=== PATIENT | female | born 1935 | race Caucasian/White ===

== ENCOUNTER 2016-11-19 19:40 | Emergency (ER) | payer MEDICARE, MEDICAID ==
[~2016-11-19] VITALS: Ht 152.4 cm; Wt 43.5 kg
[~2016-11-19 19:40] MED LIST: ACET325T38 PO; AMIO100T4 PO; AMIO200T PO; APIX5TAB2 PO; ASCO500C14 PO; Amlodipine Besylate PO; BISM262T13 PO; BISM262T16 PO; CALC-140 PO; CALC-80 PO; CALC500T7 PO; CALC625T8 PO; CEFD300C3 PO; CHLO25TA22 PO; CHOL200018 PO; CHOL400T40 PO; CIPR250T3 PO; CORICIDIN PO; CYAN100053 IM; CYCL25CA7 PO; CYCLOSPORINE PO; D ME PO; DCS100C PO; DOCU-143 PO; DULO30CA3 PO; FAMO1TAB3 PO; FLUC100T PO; GUAI10SY4 PO; GUAI1CAP51 PO; GUAI5SYR PO; HYDR-3004 PO; ISOS30TA3 PO; Isosorbide Mononitrate PO; LEVO75TA57 PO; LIDO76.5 TP; LISI40TA PO; LVT.025T PO; MAGN-47 PO; MAGN400O7 PO; MAGN400T26 PO; METO-333 PO; MOUTH WASH MM; MULT-974 PO; NFCHLORT25 PO; OLME20TA5 PO; OMEP-10 PO; POTA-51 PO; POTA10CA43 PO; PRD20T PO; PRED5TAB PO; ROPI0.5T2 PO; ROPI1TAB2 PO; Rivaroxaban PO; SIMV10TA3 PO; TRAM-21 PO; TRAM-42 PO; TROL177. TP
--- OUTSIDE RECORDS SUMMARY | 2016-11-19 19:45 | XMS REPORT | Continuity of Care Document ---
Author Author [facility] Organization [facility] Address Unknown Phone Unavailable Care Team Providers Care Sas Administrator Name Role Phone Soledad Lilly PCP [phone] Source Comments Some departments are not documenting in the electronic medical record. If you do not see the information that you expected, contact Release of Information in the Health Information Management department at [phone] for further assistance in locating additional records.[facility] Active Allergies and Adverse Reactions Allergen Noted Date Severity Reactions Comments Adhesive Tape (Rosins) 12/12/2015 Medium RASH Amoxil 12/12/2015 Medium RASH Bactrim 12/12/2015 Medium RASH Macrodantin 12/12/2015 Medium RASH Norvasc 12/12/2015 Medium RASH Silicone 12/12/2015 Medium RASH Current Medications Prescription Sig. Disp. Refills Start End Date Status Date isosorbide mononitrate SR Take 30 mg by mouth every Active (IMDUR) 30 mg tablet morning. amLODIPine (NORVASC) 10 Take 10 mg by mouth Active mg tablet daily. chlorthalidone (HYGROTON) Take 25 mg by mouth Active 25 mg tablet daily. potassium chloride(+) Take 10 mEq by mouth Active (MICRO-K) 10 mEq capsule daily. rOPINIRole (REQUIP) 0.5 Take 0.5 mg by mouth Active mg tablet three times daily. CALCIUM CARBONATE/VITAMIN Take 600 mg by mouth Active D3 (CALCIUM + D PO) daily. docusate (COLACE) 100 mg Take 100 mg by mouth Active capsule twice daily. traMADol (ULTRAM) 50 mg Take 50 mg by mouth every Active tablet 6 hours as needed for Pain. MAGNESIUM HYDROXIDE Take by mouth. Active (CHRISTENSEN MILK OF MAGNESIA PO) MAGNESIUM HYDROXIDE (MILK Take 30 mL by mouth as Active OF MAGNESIA PO) Needed. acetaminophen (TYLENOL) Take 325 mg by mouth Active 325 mg tablet every 4 hours as needed for Pain. CALCIUM CARBONATE (TUMS Take by mouth as Needed. Active PO) BISMUTH SUBSALICYLATE Take by mouth as Needed. Active (PEPTO-BISMOL PO) GUAIFENESIN/CODEINE Take 10 mL by mouth as Active PHOSPHATE (ROBITUSSIN A-C Needed. PO) ACETAMINOPHEN/CHLORPHENIR Take by mouth as Needed. Active AMINE (CORICIDIN PO) TROLAMINE SALICYLATE Apply to affected area Active (ASPERCREME TP) as Needed. sucralfate (CARAFATE) 1 Take 1 g by mouth every 6 Active gram tablet hours. PREDNISONE PO Take 20 mg by mouth twice Active daily. NYSTATIN PO Take by mouth. Active triamcinolone Take 5 g by mouth twice 5 g 12 12/12/19 Active acetonide(+) (KENALOG) daily. 16 0.1 % dental paste Active Problems Problem Noted Date Mucositis oral 12/12/2015 Essential hypertension 12/12/2015 Rash 12/12/2015 Social History Tobacco Use Types Packs/Day Years Used Date Never Smoker Alcohol Use Drinks/Week oz/Week Comments No 0 Standard 0.0 drinks or equivalent Last Filed Vital Signs Vital Sign Reading Time Taken Blood Pressure 110/76 12/12/2015 1:18 PM CDT Pulse 93 12/12/2015 1:18 PM CDT Temperature - - Respiratory Rate - - Height 1.524 m (5') 12/12/2015 1:18 PM CDT Weight 43.999 kg (97 lb) 12/12/2015 1:18 PM CDT Body Mass Index 18.94 12/12/2015 1:18 PM CDT Oxygen Saturation - - Plan of Care Health Maintenance Due Date Last Done Comments Physical (Comprehensive) 1940 Exam Pertussis Vaccine 1944 Tetanus Vaccine 1950 Shingles Vaccine 1993 Osteoporosis Screening 1998 Prevnar/Pneumovax (#1) 1998 Influenza Vaccine 05/17/2016 Results from Last 3 Months Not on file
[2016-11-19] MEDS ORDERED: NS IV 1000 ML 1,000 ML ONE (19:49)
[2016-11-19] MEDS ORDERED: NS IV 1000 ML 1,000 ML IV ONE (19:54)
[2016-11-19 20:04] LABS: BASOPHILS % (AUTO) 0 % (0-10); EOSINOPHILS % (AUTO) 0 % (0-10); LYMPHOCYTES # (AUTO) 2.2 X 10^3 (1.0-4.0); LYMPHOCYTES % (AUTO) 20 % (12-44); MEAN CORPUSCULAR HEMOGLOBIN 30 PG (25-34); MEAN CORPUSCULAR HGB CONC 33 G/DL (32-36); MEAN CORPUSCULAR VOLUME 90 FL (80-99); MEAN PLATELET VOLUME 10.9 FL (7.4-10.4); MONOCYTES # (AUTO) 0.9 X 10^3 (0.0-1.0); MONOCYTES % (AUTO) 8 % (0-12); NEUTROPHILS # (AUTO) 7.9 X 10^3 (1.8-7.8); NEUTROPHILS % (AUTO) 71 % (42-75); PLATELET COUNT 197 10^3/uL (130-400); RED BLOOD COUNT 4.56 10^6/uL (4.35-5.85); RED CELL DISTRIBUTION WIDTH 16.1 % (10.0-14.5); WHITE BLOOD COUNT 11.1 10^3/uL (4.3-11.0)
[2016-11-19] MEDS ORDERED: ENOXAPARIN 40 MG/0.4 ML (LOVENOX) SYR SC ONE (20:15)
[2016-11-19] MEDS ORDERED: AMIODARONE IV SOLUTION 200 ML IV SCH (20:15)
[2016-11-19] MEDS ORDERED: DIGOXIN 0.25 MG/ML (LANOXIN) 2 ML AMP IV ONE (20:15)
[2016-11-19] MEDS ORDERED: AMIODARONE FOR BOLUS 150 MG in D5W 100 ML IVPB 100 ML IV ONE (20:15)
[2016-11-19] MEDS ORDERED: DOPamine DRIP 250 ML IV SCH (20:15)
[2016-11-19] MEDS ORDERED: ENOXAPARIN 60 MG/0.6 ML (LOVENOX) SYR SC ONE (20:15)
[2016-11-19 20:17] LABS: INR 1.2 (0.8-1.4)
[2016-11-19] MEDS ORDERED: DOPamine DRIP 250 ML IV ONE (20:19)
[2016-11-19] MEDS ORDERED: PANTOPRAZOLE 40 MG/10 ML (PROTONIX) VIAL ONE (20:24)
[2016-11-19] MEDS ORDERED: PANTOPRAZOLE 40 MG/10 ML (PROTONIX) VIAL IV ONE (20:30)
--- NOTE | 2016-11-19 20:50 | Diagnostic Imaging Report ---
EXAM: CHEST 1 VIEW, AP/PA ONLY INDICATION: Low blood pressure. Shortness of air. COMPARISON: Chest radiograph 07/25/2016. FINDINGS: Examination mildly limited by rotation and shallow inspiration which accentuates the cardiomegaly and pulmonary vascularity. Atelectasis or infiltrate in the left lung base is new since the prior exam. Large esophageal hiatal hernia. No new focal pulmonary opacity, pleural effusion or pneumothorax. Calcified aorta. Demineralization. Degenerative changes in both shoulders and spine. IMPRESSION: 1. Shallow inspiration accentuates the cardiomegaly and central pulmonary vascularity. 2. New atelectasis and/or infiltrate in the left lung base. Dictated by: Dictated on workstation # [id number]
[2016-11-19] MEDS ORDERED: ASPIRIN 325 MG (5 GR) TABLET ONE (20:53)
[2016-11-19] MEDS ORDERED: meTOprolol 5 MG/5 ML (LOPRESSOR) VIAL ONE (20:53)
[2016-11-19] MEDS ORDERED: meTOproloL SUCCINATE 50 MG (TOPROL XL) TAB PO ONE (20:53)
[2016-11-19] MEDS ORDERED: FUROSEMIDE 40 MG/4 ML INJ (LASIX) ONE (20:54)
--- NOTE | 2016-11-19 20:55 | ED Cardiac General ---
History of Present Illness General Chief Complaint: Chest Pain Stated Complaint: AFIB W/ RVR Nursing Triage Note: PT BROUGHT IN PER EMS, REPORT SOA, CHEST DISCOMFORT FROM [facility]. PT ALERT AND ORIENTED. PT C/O LEFT ARM TENDERNESS AND SOA. HR FOUND TO BE 160S. Source: family (DAUGHTER), EMS, [facility] records, old records (ALL PMH IS FROM OLD RECORDS AND [facility] PAPERS) Exam Limitations: other (PT UNABLE TO GIVE ANY RELEVANT INFORMATION AT THIS TIME) History of Present Illness Time seen by provider: 19:40 Initial Comments PT ARRIVES VIA EMS FROM [facility] EMS REPORT THAT THEY WERE CALLED FOR PT HAVING CHEST PAIN PT WAS FOUND TO BE IN A FIB WITH RVR AND RATE IN 170'S WITH BP 97/55 O2 SATS NOT OBTAINED--PT ON 15L/NRB ON ARRIVAL PT IS UNABLE TO STATE IF SHE IS HAVING CHEST PAIN OR SHORTNESS OF BREATH--PT STATES "I DON'T KNOW" TO ALL QUESTIONS--PT IS MOANING AND SOMEWHAT INCOHERENT ON ARRIVAL, AND UNABLE TO ANSWER ANY QUESTIONS. IS UNKNOWN HOW LONG THE PT HAS BEEN IN THIS CONDITION--NO REPORT FROM [facility] PCP: DR. ARTHUR Allergies and Home Medications Allergies Coded Allergies: acetaminophen (Verified Allergy, Mild, 02/06/16) adhesive (Verified Allergy, Mild, 02/06/16) amlodipine (Verified Allergy, Mild, 02/06/16) amoxicillin (Verified Allergy, Mild, 02/06/16) nitrofurantoin (Unverified Allergy, Mild, 12/30/14) propoxyphene (Unverified Allergy, Mild, 12/30/14) silicone (Unverified Allergy, Mild, 12/30/14) sulfamethoxazole (Unverified Allergy, Mild, 12/30/14) trimethoprim (Unverified Allergy, Mild, 12/30/14) Home Medications 5 ML MM QID (Reported) RINSE AND SPIT 1:1:1 DECADRON;LIDOCAINE;NYSTATIN Bismuth Subsalicylate 262 Mg Tab.chew 262 MG PO PRN PRN PRN STOMACH UPSET ( Reported) Calcium Carbonate 200 Mg Tab.chew 1-2 TAB.CHEW PO QID PRN PRN INDIGESTION ( Reported) Calcium Carbonate/Vitamin D3 1 Each Tablet 1 TAB PO BID (Reported) Cefdinir 300 Mg Capsule 300 MG PO BID (Reported) 7 DAY THERAPY START DATE 02-04-16 Chlorthalidone 25 Mg Tablet 25 MG PO DAILY (Reported) Ciprofloxacin HCl 250 Mg Tablet #20 250 MG PO BID WITH MEALS Prescribed by: MARYELLEN ALFORD on 08/04/16 1601 Cyclosporine 25 Mg Capsule 25 MG PO DAILY (Reported) Docusate Sodium 100 Mg Cap 100 MG PO BID PRN PRN CONSTIPATION (Reported) Guaifenesin/Dextromethorphan 5 Ml Syrup 10 ML PO Q4H PRN PRN COUGH (Reported) Guaifenesin/Dextromethorphan 1 Each Capsule 1 CAP PO UD PRN PRN COLD (Reported) Isosorbide Mononitrate 30 Mg Tab.er.24h 30 MG PO DAILY (Reported) Lidocaine HCl 76.5 Gm Cream..g. TP QID PRN PRN MUSCLE PAIN (Reported) Magnesium Hydroxide Unknown Strength Oral.susp 30 ML PO DAILY PRN PRN CONSTIPATION (Reported) Metoprolol Tartrate 25 Mg Tablet 25 MG PO DAILY (Reported) Multivitamin 1 Each Tablet 1 TAB PO DAILY (Reported) Prednisone 5 Mg Tablet 15 MG PO DAILY (Reported) TAKES 3 (5MG) TABLETS Ropinirole HCl 0.5 Mg Tablet 1.5 MG PO HS (Reported) TAKES 3 (0.5MG) TABLETS Ropinirole HCl 0.5 Mg Tablet 0.5 MG PO DAILY PRN PRN RESTLESSNESS (Reported) Tramadol HCl 50 Mg Tablet 100 MG PO TID PRN PRN PAIN (Reported) Review of Systems Constitutional: see HPI other (PT UNABLE TO ANSWER ANY QUESTIONS AT THIS TIME) Past Jlwzddg-Vtjieq-Tewtun Hx Patient Social History Alcohol Use: Denies Use Recreational Drug Use: No Smoking Status: Never a Smoker 2nd Hand Smoke Exposure: No Recent Foreign Travel: No Contact w/Someone Who Travel: No Recent Infectious Disease Expo: No Recent Hopitalizations: No Immunizations Up To Date Date of Pneumonia Vaccine: January 23, 2016 Date of Influenza Vaccine: May 17, 2016 Seasonal Allergies Seasonal Allergies: No Surgeries HX Surgeries: Yes (BILAT TOTAL HIPS, BLADDER TIE UP) Surgeries: Bladder Surgery, Gallbladder, Hysterectomy, Joint Replacement, Orthopedic Respiratory Hx Respiratory Disorders: No Cardiovascular Hx Cardiac Disorders: Yes (HX OF AFIB ) Cardiac Disorders: Angina, Atrial Fibrillation, High Cholesterol, Hypertension , Irregular Heartbeat Neurological Hx Neurological Disorders: Yes Neurological Disorders: TIA Reproductive System : No Hx Reproductive Disorders: No Sexually Transmitted Disease: No HIV/AIDS: 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 Genitourinary Hx Genitourinary Disorders: Yes (UTI) Genitourinary Disorders: UTI-Chronic Gastrointestinal Hx Gastrointestinal Disorders: Yes (WEIGHT LOSS) Gastrointestinal Disorders: Abdominal Hernia, Gastroesophageal Reflux, Chronic Constipation Musculoskeletal Hx Musculoskeletal Disorders: Yes (restless leg syndrome) Musculoskeletal Disorders: Degenerate Disk Disease, Back Injury, Fractures Endocrine Hx Endocrine Disorders: Yes Endocrine Disorders: Hypothyroidsim HEENT HX ENT Disorders: No Cancer Hx Cancer: No Psychosocial Hx Psychiatric Problems: No Integumentary HX Skin/Integumentary Disorder: No Blood Transfusions Hx Blood Disorders: Yes (anemia; "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 PT DYSPNEIC. ) HEENT: Other (EXTENSIVE THRUSH; SIGNIFICANT BILATERAL CONJUNCTIVITIS) Neck: Full Range of MotionNo JVD Respiratory: Accessory Muscle Use Rales (IN BASES) Respiratory Distress ( MILDLY DYSPNEIC) Cardiovascular: No JVD Irregularly Irregular Tachycardia Gastrointestinal: No Pulsatile Mass Non Tender Soft Extremity: Other (1+ EDEMA ON RIGHT, 2+ EDEMA ON LEFT WITH CHRONIC VENOUS STASIS CHANGES TO LEFT LOWER LEG. ) Neurologic/Psychiatric: Alert (AWAKE BUT LETHARGIC) Other (UNABLE TO DETERMINE IF FULLY ORIENTED AT THIS TIME--PT UNABLE TO ANSWER MOST QUESTIONS AND UNABLE TO FOLLOW COMMANDS. SPEECH APPEARS CLEAR. PT APPEARS TO RECOGNIZE DAUGHTER. ) Skin: Normal Color Warm/Dry Progress/Results/Core Measures Results/Orders Lab Results Laboratory Tests Test 11/19/16 19:49 11/19/16 20:54 Range/Units Activated Partial Thromboplast Time 25 24-35 SEC B-Type Natriuretic Peptide 1165.6 H <100.0 PG/ML Basophils # (Auto) 0.0 0.0-0.1 10^3/uL Basophils (%) (Auto) 0 0-10 % Eosinophils # (Auto) 0.0 0.0-0.3 10^3/uL Eosinophils (%) (Auto) 0 0-10 % Hematocrit 41 35-52 % Hemoglobin 13.6 11.5-16.0 G/DL INR Comment 1.2 0.8-1.4 Lymphocytes # (Auto) 2.2 1.0-4.0 X 10^3 Lymphocytes (%) (Auto) 20 12-44 % Mean Corpuscular Hemoglobin 30 25-34 PG Mean Corpuscular Hemoglobin Concent 33 32-36 G/DL Mean Corpuscular Volume 90 80-99 FL Mean Platelet Volume 10.9 H 7.4-10.4 FL Monocytes # (Auto) 0.9 0.0-1.0 X 10^3 Monocytes (%) (Auto) 8 0-12 % Neutrophils # (Auto) 7.9 H 1.8-7.8 X 10^3 Neutrophils (%) (Auto) 71 42-75 % Platelet Count 197 130-400 10^3/uL Prothrombin Time 15.0 H 12.2-14.7 SEC Red Blood Count 4.56 4.35-5.85 10^6/uL Red Cell Distribution Width 16.1 H 10.0-14.5 % White Blood Count 11.1 H 4.3-11.0 10^3/uL Alanine Aminotransferase (ALT/SGPT) 23 0-55 U/L Albumin 2.8 L 3.2-4.5 G/DL Alkaline Phosphatase 84 40-136 U/L Anion Gap 14 5-14 MMOL/L Aspartate Amino Transf (AST/SGOT) 37 H 5-34 U/L BUN/Creatinine Ratio 34 Blood Urea Nitrogen 58 H 7-18 MG/DL Calcium Level 8.1 L 8.5-10.1 MG/DL Carbon Dioxide Level 14 L 21-32 MMOL/L Chloride Level 107 98-107 MMOL/L Creatine Kinase MB 15.9 *H <6.6 NG/ML Creatinine 1.70 H 0.60-1.30 MG/DL Estimat Glomerular Filtration Rate 29 Glucose Level 260 H 70-105 MG/DL Magnesium Level 1.9 1.8-2.4 MG/DL Potassium Level 4.6 3.6-5.0 MMOL/L Sodium Level 135 135-145 MMOL/L TSH Pegram Testing 2.22 0.35-4.94 UIU/ML Total Bilirubin 0.8 0.1-1.0 MG/DL Total Creatine Kinase 86 29-168 U/L Total Protein 6.0 L 6.4-8.2 G/DL Troponin I 18.72 *H <0.30 NG/ML My Orders Orders-BILL VANEGAS DO Ns Iv 1000 Ml (Sodium Chloride 0.9%) (11/19/16 19:49) Ekg Tracing (11/19/16 19:54) O2 (11/19/16 19:54) Monitor-Rhythm Ecg Trace Only (11/19/16 19:54) BNP (11/19/16 19:54) Cbc With Automated Diff (11/19/16 19:54) Comprehensive Metabolic Panel (11/19/16 19:54) Creatine Kinase (11/19/16 19:54) Creatine Kinase Mb (11/19/16 19:54) Magnesium (11/19/16 19:54) Protime With Inr (11/19/16 19:54) Partial Thromboplastin Time (11/19/16 19:54) Thyroid Analyzer (11/19/16 19:54) Troponin I (11/19/16 19:54) Chest 1 View, Ap/Pa Only (11/19/16 19:54) Saline Lock/Iv-Start (11/19/16 19:54) Ns Iv 1000 Ml (Sodium Chloride 0.9%) (11/19/16 19:54) Dopamine Drip (Dopamine Drip) (11/19/16 20:15) Digoxin Injection (Lanoxin Injection) (11/19/16 20:15) Amiodarone For Bolus (Cordarone Bolus) (11/19/16 20:15) Amiodarone Iv Solution (Nexterone Iv Adelia (11/19/16 20:15) Enoxaparin Injection (Lovenox Injection) (11/19/16 20:15) Enoxaparin Injection (Lovenox Injection) (11/19/16 20:15) Dopamine Drip (Dopamine Drip) (11/19/16 20:19) Pantoprazole Injection (Protonix Injecti (11/19/16 20:24) Catheter(Urinary) Insert & Ass 03,15 (11/19/16 20:16) Pantoprazole Injection (Protonix Injecti (11/19/16 20:30) Medications Given in ED Current Medications Medications Dose Ordered Sig/Alex Route Start Time Stop Time Status Last Admin Dose Admin Amiodarone HCl/ Dextrose 103 ml @ 618 mls/hr ONCE ONCE IV 11/19/16 20:15 11/19/16 20:24 DC 11/19/16 20:18 618 MLS/HR Digoxin 0.25 mg 0.25 mg ONCE ONCE IV 11/19/16 20:15 11/19/16 20:16 DC 11/19/16 20:25 0.25 MG Enoxaparin Sodium 40 mg ONCE ONCE SC 11/19/16 20:15 11/19/16 20:16 DC 11/19/16 20:36 40 MG Pantoprazole 40 mg ONCE ONCE IV 11/19/16 20:30 11/19/16 20:31 DC 11/19/16 20:35 40 MG Sodium Chloride 1,000 ml @ 0 mls/hr Q0M ONCE IV 11/19/16 19:54 11/19/16 19:56 DC 11/19/16 20:18 0 MLS/HR Vital Signs/I&O Vital Sign - Last 12Hours 11/19/16 11/19/16 11/19/16 11/19/16 19:45 20:05 20:32 20:36 Temp 96.1 96.1 96.1 Pulse 160 160 B/P 73/57 73/57 Pulse Ox 3 97 97 O2 Delivery Nasal Cannula Nasal Cannula Nasal Cannula O2 Flow Rate 2 3 3.00 11/19/16 20:37 Temp 96.1 Pulse 160 B/P 73/57 Pulse Ox 97 O2 Delivery Nasal Cannula O2 Flow Rate 3.00 Blood Pressure Mean: 62 ECG Initial ECG Impression Time: 19:51 Initial ECG Rate: 163 Initial ECG Rhythm: A Fib/Flutter (WITH RVR) Initial ECG Impression: Acute KS (STEMI--ELEVATION IN ANTERIOR LEADS. ) Initial ECG Comparisson: Changed (FROM ) EKG : EKG Time: 20:23 Rate: 121 Rhythm: A Fib/Flutter (WITH RVR AND ANTERIOR STEMI) Comment EKG # 3 @ 2041--RATE 107-- ATRIAL FIB, RVR, ANTERIOR STEMI EKG #4 @ 2057--RATE 85--ATRIAL FIB/FLUTTER, ANTERIOR/LATERAL STEMI Diagnostic Imaging Comments CXR--SHALLOW INSPIRATION, CARDIOMEGALY, CENTRAL VENOUS VASCULARITY, LLL INFILTRATE/ATELECTASIS--PER RADIOLOGIST REPORT @ 2114 Reviewed: Reviewed by Me Critical Care Note Critical Care Start Time: 19:40 Stop Time: 20:58 Total Time (minutes) 1 HOUR Date of : Nov 19, 2016 Time of : 20:58 Departure Communication Progress Notes 1949--PAGING DR. RODRIGUEZ 1950--DAUGHTER STATES THAT PT IS TO BE DNR/DNI--NO FORMAL PAPERWORK HOWEVER. SHE IS CALLING HER BROTHER--HE WILL BE HERE SHORTLY. THEY HAVE BOTH DISCUSSED THIS AND BOTH AGREE ON DNR/DNI STATUS 1954--SPOKE WITH DR. ARTHUR--AGREES THAT PT SHOULD BE DNR/DNI AND POSSIBLY EVEN COMFORT CARE. SHE DOES NOT FEEL PT WOULD SURVIVE A CARDIAC CATH. ACCEPTS PT FOR ADMIT. 1958--PAGING DR. RODRIGUEZ 1999--SPOKE WITH DR. RODRIGUEZ. ORDERS NOTED FOR AMIODARONE 150 MG BOLUS AND DRIP PER PROTOCOL, DIGOXIN 0.25 MG IV X 1 DOSE, LOVENOX WEIGHT BASED DOSE Q 12 HOURS , ASPIRIN AND PLAVIX WHEN FULLY ALERT, AND CARDIZEM DRIP AT 5 MG/HOUR IF SYSTOLIC BP > 80. NO BETA BLOCKERS DUE TO HYPOTENSION. HE WILL CALL BACK TO CHECK ON PT 2034--DR. RODRIGUEZ HERE TO SEE PT AND TALKING WITH FAMILY. ALL AGREE THAT PT SHOULD BE DNR/DNI, AND NO CARDIAC CATH. 2049--PT NOW WITH AGONAL BREATHING--DR. RODRIGUEZ IN ROOM 2054--PT NOW IN [place]--DR. RODRIGUEZ IN ROOM 2057--PT PRONOUNCED BY DR. RODRIGUEZ 2104--SPOKE WITH DR. ARTHUR AND INFORMED HER OF PT'S . Impression Impression: Primary Impression: STEMI (ST elevation myocardial infarction) Additional Impressions: Atrial fibrillation with RVR Cardiogenic shock Disposition: 20 Condition: Departure-Patient Inst. Referrals: RADHA ARTHUR MD (PCP) Primary Care Physician BILL VANEGAS DO Nov 19, 2016 20:55
[2016-11-19 20:58] VITALS: BP 0/0
[2016-11-19] MEDS ORDERED: CLOPIDOGREL 300 MG (PLAVIX) TABLET PO ONE (21:00)
--- NOTE | 2016-11-19 21:14 | Consultation-Cardiology ---
HPI-Cardiology Cardiology Consultation: Date of Consultation 11/19/16 Date of Admission Attending Physician Admitting Physician Mely Lilly MD Consulting Physician MAC RODRIGUEZ MD, FACP, FACC, [facility] [place], CCDS Physician requesting consult: Dr Lopez, Dr Lilly HPI: Chief Complaint: Chest discomfort 81 yo woman, resident of a local [facility], sent to ER for eval of chest discomfort and found to have recent/acute ant-lat STEMI. Intermittently confused and not able to provide a meaningful history. Daughter and son by her bedside. Daughter reports that Ms Cotton has been ill for several weeks. This has consisted of gen malaise and some shortness of breath. Chest discomfort today was new. She did not report palp, but was found to be in a fib with RVR at presentation. She did not describe syncope. She has a h/o mild chronic bilat leg swelling Review of Systems-Cardiology Review of Systems Constitutional: other (Due to pt's confused status, a reliable review of systems could not be obtained. Whatever ROS could be obtained is described above under HPI) LNU-Mgxjdi-Gtorte Hx Patient Social History Alcohol Use: Denies Use Recreational Drug Use: No Smoking Status: Never a Smoker 2nd Hand Smoke Exposure: No Recent Foreign Travel: No Recent Infectious Disease Expo: No Hospitalization with Isolation: Denies Immunizations Up To Date Date of Pneumonia Vaccine: January 23, 2016 Date of Influenza Vaccine: May 17, 2016 Past Medical History PMH As described under Assessment. Family Medical History Family History: Alzheimer's disease 19 FATHER Congenital disease G8 BROTHER (pacemaker) FH: cancer 19 FATHER G8 BROTHER (leukemia, prostate ca) G8 SISTER Hypertension 19 FATHER Allergies and Home Medications Allergies Coded Allergies: acetaminophen (Verified Allergy, Mild, 02/06/16) adhesive (Verified Allergy, Mild, 02/06/16) amlodipine (Verified Allergy, Mild, 02/06/16) amoxicillin (Verified Allergy, Mild, 02/06/16) nitrofurantoin (Unverified Allergy, Mild, 12/30/14) propoxyphene (Unverified Allergy, Mild, 12/30/14) silicone (Unverified Allergy, Mild, 12/30/14) sulfamethoxazole (Unverified Allergy, Mild, 12/30/14) trimethoprim (Unverified Allergy, Mild, 4/16/15) Home Medications 5 ML MM QID (Reported) RINSE AND SPIT 1:1:1 DECADRON;LIDOCAINE;NYSTATIN Bismuth Subsalicylate 262 Mg Tab.chew 262 MG PO PRN PRN PRN STOMACH UPSET ( Reported) Calcium Carbonate 200 Mg Tab.chew 1-2 TAB.CHEW PO QID PRN PRN INDIGESTION ( Reported) Calcium Carbonate/Vitamin D3 1 Each Tablet 1 TAB PO BID (Reported) Cefdinir 300 Mg Capsule 300 MG PO BID (Reported) 7 DAY THERAPY START DATE 02-04-16 Chlorthalidone 25 Mg Tablet 25 MG PO DAILY (Reported) Ciprofloxacin HCl 250 Mg Tablet #20 250 MG PO BID WITH MEALS Prescribed by: MARYELLEN ALFORD on 08/04/16 1601 Cyclosporine 25 Mg Capsule 25 MG PO DAILY (Reported) Docusate Sodium 100 Mg Cap 100 MG PO BID PRN PRN CONSTIPATION (Reported) Guaifenesin/Dextromethorphan 5 Ml Syrup 10 ML PO Q4H PRN PRN COUGH (Reported) Guaifenesin/Dextromethorphan 1 Each Capsule 1 CAP PO UD PRN PRN COLD (Reported) Isosorbide Mononitrate 30 Mg Tab.er.24h 30 MG PO DAILY (Reported) Lidocaine HCl 76.5 Gm Cream..g. TP QID PRN PRN MUSCLE PAIN (Reported) Magnesium Hydroxide Unknown Strength Oral.susp 30 ML PO DAILY PRN PRN CONSTIPATION (Reported) Metoprolol Tartrate 25 Mg Tablet 25 MG PO DAILY (Reported) Multivitamin 1 Each Tablet 1 TAB PO DAILY (Reported) Prednisone 5 Mg Tablet 15 MG PO DAILY (Reported) TAKES 3 (5MG) TABLETS Ropinirole HCl 0.5 Mg Tablet 1.5 MG PO HS (Reported) TAKES 3 (0.5MG) TABLETS Ropinirole HCl 0.5 Mg Tablet 0.5 MG PO DAILY PRN PRN RESTLESSNESS (Reported) Tramadol HCl 50 Mg Tablet 100 MG PO TID PRN PRN PAIN (Reported) Physical Exam-Cardiology Physical Exam Vital Signs/I&O Vital Sign - Last 12Hours 11/19/16 11/19/16 11/19/16 11/19/16 19:45 20:05 20:32 20:36 Temp 96.1 96.1 96.1 Pulse 160 160 B/P 73/57 73/57 Pulse Ox 3 97 97 O2 Delivery Nasal Cannula Nasal Cannula Nasal Cannula O2 Flow Rate 2 3 3.00 11/19/16 20:37 Temp 96.1 Pulse 160 B/P 73/57 Pulse Ox 97 O2 Delivery Nasal Cannula O2 Flow Rate 3.00 Capillary Refill : Less Than 3 Seconds Constitutional: other (cachectic appearing; cofused) HEENT: other (mucoid discharge in the eyes holding eyelids shut; pupils round and reactive) Neck: carotid pulses are 2 + bilaterally Respiratory: other (Diminished air entry at the bases and coarse and fine basal crackles) Cardiovascular: irregularly irregular S1 and S2 systolic murmur (soft CAMI at card base) Gastrointestinal: No tender, No guarding, No rebound, audible bowel sounds Extremities: swelling (1-2+ bilat leg edema)No clubbing, No cyanosis Neurologic/Psychiatric: other (confused; 4/5 power in all limbs) Skin: No rash on exposed areas, No ulcerations on exposed areas Data Review Labs Laboratory Tests 11/19/16 19:49: Activated Partial Thromboplast Time 25, B-Type Natriuretic Peptide 1165.6H, Basophils # (Auto) 0.0, Basophils (%) (Auto) 0, Eosinophils # (Auto) 0.0, Eosinophils (%) (Auto) 0, Hematocrit 41, Hemoglobin 13.6, INR Comment 1.2, Lymphocytes # (Auto) 2.2, Lymphocytes (%) (Auto) 20, Mean Corpuscular Hemoglobin 30, Mean Corpuscular Hemoglobin Concent 33, Mean Corpuscular Volume 90, Mean Platelet Volume 10.9H, Monocytes # (Auto) 0.9, Monocytes (%) (Auto) 8, Neutrophils # (Auto) 7.9H, Neutrophils (%) (Auto) 71, Platelet Count 197, Prothrombin Time 15.0H, Red Blood Count 4.56, Red Cell Distribution Width 16.1H , White Blood Count 11.1H 11/19/16 20:54: Laboratory Tests 11/19/16 19:49 A/P-Cardiology Assessment/Admission Diagnosis * Ac anterolateral STEMI with cardiogenic shock * A fib with RVR * DNR/DNI status * Cachexia * Chronic history of immobility Discussion and Recomendations * The patient, due to confusion, was unable to make any decisions * Dr Lilly, her pcp, had recommended against card cath, given chronic illness , immobility and frail status (leading to markedly increased risk for card cath and interventions) * I also had a detailed discussion with her son and her daughter and explained the treatment option and pros and cons.They also chose conservative therapy only ADDENDUM She was treated with amiodarone for vent rate control. This did improve the heart rate considerably although she remained in a fib Subcutaneous enoxaparin was given She was unable to take oral meds at the time of presentation Beta-blockers could not be given due to low bp iv fluids were given due to low bp iv dopamine was used due to low bp Elec cardioversion was considered but the bp and heart rate improved and cardioversion was not carried out After bp improved, we were getting ready to give aspirin, clopidogrel, and beta- colten, but the patient suddenly took a turn for the worse and Resuscitation was not carried out due to DNR/DNI status which I reconfirmed with her family when the patient suddenly took a turn for the worse MAC RODRIGUEZ MD FACP [facility] Nov 19, 2016 21:14
[2016-11-19 21:18] LABS: ALBUMIN 2.8 G/DL (3.2-4.5); BILIRUBIN,TOTAL 0.8 MG/DL (0.1-1.0); CALCIUM 8.1 MG/DL (8.5-10.1); CREATININE SERUM 1.7 MG/DL (0.60-1.30); MAGNESIUM 1.9 MG/DL (1.8-2.4); POTASSIUM 4.6 MMOL/L (3.6-5.0)
[2016-11-19 21:40] LABS: TROPONIN I 18.72 NG/ML (<0.30)
== END 2016-11-19 20:58 | disposition expired ==
LOC: EDUNIT# 19:41 → ER 19:42 → UNDOADMIN 21:00 → UNDODISIN 21:00 → ICU 21:00
DX: I21.09 ST elevation (STEMI) myocardial infarction involving other coronary artery of anterior wall (principal); I48.0 Paroxysmal atrial fibrillation; R64 Cachexia; Z66 Do not resuscitate; I10 Essential (primary) hypertension; E78.00 Pure hypercholesterolemia, unspecified; K21.9 Gastro-esophageal reflux disease without esophagitis; E03.9 Hypothyroidism, unspecified; B37.0 Candidal stomatitis; H10.9 Unspecified conjunctivitis; I87.8 Other specified disorders of veins
CPT/HCPCS: 36415; 71010; 80053; 82550; 82553; 83735; 83880; 84443; 84484; 85025; 85610; 85730; 93005; 93041; 96361; 96365; 96372; 96375